=== PATIENT | female | born 1965 | race Two or more races ===

== ENCOUNTER 2020-06-20 05:45 | Inpatient (IN) | payer OTHER ==
[~2020-06-20] VITALS: Ht 160 cm; Wt 105.2 kg
[~2020-06-20 05:45] MED LIST: ATACAND4 MG PO; CARAFATE1 GM PO; CRESTOR20 MG PO; GLIMEPIRIDE4 MG; JANUVIA100 MG PO; LANTUS SOL100 UNIT/1; PROTONIX40 MG PO; SYNTHROID137 MCG PO; XALATAN OP
[2020-06-20] MEDS ORDERED: LATANOPROST2.5 ML (13:10)
== END 2020-06-21 15:35 | disposition home or self-care (01) | DRG 741 ==
LOC: CIR.AMB 05:45 → O/R 12:38 → OB/GYN 12:38
PROVIDERS: ADMIT Specialist; ATTEND Specialist
PROC: 0UT2FZZ Resection of Bilateral Ovaries, Via Natural or Artificial Opening With Percutaneous Endoscopic Assistance (ICD-10-PCS; 2020-06-20)
PROC: 0UT7FZZ Resection of Bilateral Fallopian Tubes, Via Natural or Artificial Opening With Percutaneous Endoscopic Assistance (ICD-10-PCS; 2020-06-20)
PROC: 0UT9FZZ Resection of Uterus, Via Natural or Artificial Opening With Percutaneous Endoscopic Assistance (ICD-10-PCS; principal; 2020-06-20 07:00)
DX: C54.1 Malignant neoplasm of endometrium (principal); N70.11 Chronic salpingitis; N83.8 Other noninflammatory disorders of ovary, fallopian tube and broad ligament; N94.89 Other specified conditions associated with female genital organs and menstrual cycle; D25.1 Intramural leiomyoma of uterus

== ENCOUNTER 2022-10-16 12:55 | Outpatient (CLI) | payer OTHER ==
[~2022-10-16 12:55] MED LIST changes: +LATANOPROST2.5 ML
== END 2022-10-16 12:58 | disposition home or self-care (01) ==
LOC: TOM 12:55
PROVIDERS: ATTEND Urology
DX: N20.0 Calculus of kidney (principal)

== ENCOUNTER 2022-10-18 10:06 | Outpatient (CLI) | payer OTHER | END 2022-10-18 10:14 | disposition home or self-care (01) | LOC: RAD 10:06 | PROVIDERS: ATTEND Urology | DX: N20.0 Calculus of kidney (principal) ==

== ENCOUNTER 2023-01-06 12:05 | Outpatient (CLI) | payer OTHER | END 2023-01-06 12:06 | disposition home or self-care (01) | LOC: LAB 12:05 | PROVIDERS: ATTEND Specialist | DX: K85.90 Acute pancreatitis without necrosis or infection, unspecified (principal) ==

== ENCOUNTER 2023-01-15 08:08 | Inpatient (IN) | payer OTHER ==
[~2023-01-15] VITALS: Ht 162.6 cm; Wt 105.2 kg
[2023-01-16] MEDS ORDERED: LYRICA150 MG PO (14:23)
[2023-01-16] MEDS ORDERED: LUMIGAN (14:23)
[2023-01-16] MEDS ORDERED: [UNRECOGNIZED DRUG - OTHER] PO (14:24)
[2023-01-16] MEDS ORDERED: NASAL MIST126 ML (14:24)
[2023-01-28] MEDS ORDERED: LUMIGAN2.5 M1 (13:20)
[2023-01-28] MEDS ORDERED: FAMOTIDINE20 MG (13:20)
[2023-01-28] MEDS ORDERED: DULOXETINE HCL60 MG (13:20)
[2023-01-28] MEDS ORDERED: GABAPENTIN300 M2 (13:20)
[2023-01-28] MEDS ORDERED: CLONAZEPAM1 MG (13:20)
[2023-01-28] MEDS ORDERED: DORZOLAMIDE-TIM10 ML (13:20)
[2023-01-28] MEDS ORDERED: TAMSULOSIN HCL0.4 MG (13:21)
[2023-01-28] MEDS ORDERED: SULINDAC200 MG (13:21)
[2023-01-28] MEDS ORDERED: MOUNJARO5 MG/0.5 M (13:21)
[2023-01-28] MEDS ORDERED: CEFUROXIME500 MG (13:21)
[2023-01-28 20:13] LABS: HEMATOCRIT 38.6 % (36.0-45.00); HEMOGLOBIN 12.6 g/dL (12.0-15.00); MEAN CELL VOLUME 91.5 fL (80.00-100.00); MEAN CORPUSCULAR HEMOGLOBIN 29.8 pg (27.00-32.0); MEAN CORPUSCULAR HGB CONC 32.5 g/dl (32.0-36.0); PLATELET COUNT 232 K/uL (150-450); RED BLOOD COUNT 4.22 M/uL (4.00-6.00); RED CELL DISTRIBUTION WIDTH 15.5 % (11.5-14.5)
[2023-01-29 06:56] LABS: HEMATOCRIT 36.3 % (36.0-45.00); HEMOGLOBIN 12.2 g/dL (12.0-15.00); MEAN CELL VOLUME 91.3 fL (80.00-100.00); MEAN CORPUSCULAR HEMOGLOBIN 30.7 pg (27.00-32.0); MEAN CORPUSCULAR HGB CONC 33.7 g/dl (32.0-36.0); PLATELET COUNT 227 K/uL (150-450); RED BLOOD COUNT 3.98 M/uL (4.00-6.00)
[2023-01-29 07:31] LABS: CALCIUM 8.5 mg/dL (8.5-10.1); CREATININE SERUM 0.83 mg/dL (0.55-1.02); GFR 71.37; POTASSIUM 4.03 mEq/L (3.5-5.1)
== END 2023-01-30 10:40 | disposition home or self-care (01) | DRG 661 ==
LOC: SURH 01-21 10:00 → O/R 01-28 09:53 → SURH 01-28 15:35
PROVIDERS: ADMIT Urology; ATTEND Urology
PROC: 0TC68ZZ Extirpation of Matter from Right Ureter, Via Natural or Artificial Opening Endoscopic (ICD-10-PCS; 2023-01-28)
PROC: BT1DZZZ Fluoroscopy of Right Kidney, Ureter and Bladder (ICD-10-PCS; 2023-01-28)
PROC: 0TC03ZZ Extirpation of Matter from Right Kidney, Percutaneous Approach (ICD-10-PCS; principal; 2023-01-28 12:15)
DX: N20.0 Calculus of kidney (principal); E66.01 Morbid (severe) obesity due to excess calories

== ENCOUNTER → 2023-02-06 08:13 | Outpatient (CLI) | payer OTHER ==
[~2023-02-06 08:13] MED LIST changes: +CEFUROXIME500 MG; +CLONAZEPAM1 MG; +DORZOLAMIDE-TIM10 ML; +DULOXETINE HCL60 MG; +FAMOTIDINE20 MG; +GABAPENTIN300 M2; +LUMIGAN; +LUMIGAN2.5 M1; +LYRICA150 MG PO; +MOUNJARO5 MG/0.5 M; +NASAL MIST126 ML; +SULINDAC200 MG; +TAMSULOSIN HCL0.4 MG; +[UNRECOGNIZED DRUG - OTHER] PO
[2023-02-06 09:21] LABS: HEMATOCRIT 39.3 % (36.0-45.00); HEMOGLOBIN 13.3 g/dL (12.0-15.00); MEAN CORPUSCULAR HEMOGLOBIN 30.7 pg (27.00-32.0); MEAN CORPUSCULAR HGB CONC 33.8 g/dl (32.0-36.0); PLATELET COUNT 292 K/uL (150-450); RED BLOOD COUNT 4.31 M/uL (4.00-6.00); RED CELL DISTRIBUTION WIDTH 15.3 % (11.5-14.5)
[2023-02-06 09:49] LABS: CALCIUM 9.7 mg/dL (8.5-10.1); CREATININE SERUM 1.08 mg/dL (0.55-1.02); GFR 52.67; POTASSIUM 4.94 mEq/L (3.5-5.1)
== END | disposition home or self-care (01) ==
LOC: LAB 08:13
PROVIDERS: ATTEND Urology
DX: D62 Acute posthemorrhagic anemia (principal); Z88.5 Allergy status to narcotic agent; Z88.6 Allergy status to analgesic agent